=== PATIENT | female | born 1965 | race Caucasian/White ===

== ENCOUNTER 2022-08-21 17:30 | Outpatient (CLI) | payer BC | END 2022-08-21 17:31 | disposition home or self-care (01) | LOC: SLEEPLAB 17:30 | PROVIDERS: ATTEND Family Medicine | DX: G47.33 Obstructive sleep apnea (adult) (pediatric) (principal); R53.83 Other fatigue; G47.10 Hypersomnia, unspecified; R06.83 Snoring; I10 Essential (primary) hypertension | CPT/HCPCS: 95800 ==

== ENCOUNTER 2022-10-05 19:00 | Outpatient (CLI) | payer BC | END 2022-10-05 19:01 | disposition home or self-care (01) | LOC: SLEEPLAB 19:00 | PROVIDERS: ATTEND Family Medicine | DX: G47.33 Obstructive sleep apnea (adult) (pediatric) (principal); R53.83 Other fatigue; I10 Essential (primary) hypertension | CPT/HCPCS: 95811 ==